=== PATIENT | female | born 1975 | race Caucasian/White ===

== ENCOUNTER 2018-04-15 18:07 | Emergency (ER) | payer BC, MEDICARE, OTHER ==
[~2018-04-15] VITALS: Ht 167.6 cm; Wt 60.0 kg
[2018-04-15] MEDS ORDERED: HYDROmorphone 1 MG/ML, 1ML IM ONE (19:00)
[2018-04-15] MEDS ORDERED: HYDROmorphone 2 MG/ML, 1ML ONE (19:05)
[2018-04-15 20:22] VITALS: BP 107/55
== END 2018-04-15 21:22 | disposition home or self-care (01) ==
LOC: ED 20:15
DX: S13.4XXA Sprain of ligaments of cervical spine, initial encounter (principal); S23.3XXA Sprain of ligaments of thoracic spine, initial encounter; S70.11XA Contusion of right thigh, initial encounter; S80.02XA Contusion of left knee, initial encounter; F32.9 Major depressive disorder, single episode, unspecified; W01.0XXA Fall on same level from slipping, tripping and stumbling without subsequent striking against object, initial encounter; Y93.89 Activity, other specified; Y92.89 Other specified places as the place of occurrence of the external cause; Y99.8 Other external cause status
CPT/HCPCS: 72050; 72072; 72125; 73552; 73564; 96372; 99284; J1170